=== PATIENT | female | born 2005 | race Hispanic/Latino ===

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

== ENCOUNTER 2025-01-25 14:46 | Emergency (ER) | payer MEDICAID, OTHER ==
[~2025-01-25] VITALS: Ht 157.5 cm; Wt 81.6 kg
[~2025-01-25 14:46] MED LIST: AMOX-426 PO
--- NOTE | 2025-01-25 15:55 | NUR ---
PT PLACED IN FAST TRACK
[2025-01-25 15:56] VITALS: BP 116/78; PULSE 100; RESP 16; TEMP 99; O2SAT 99
[2025-01-25 15:56] LABS: RAPID GROUP A STREP negative (NEGATIVE)
[2025-01-25 16:00] LABS: SARS-CoV-2, RNA, NAAT NEGATIVE SARS CoV-2 (NEGATIVE)
[2025-01-25 16:06] LABS: INFLUENZA TYPE A Negative For Type A (NEGATIVE); INFLUENZA TYPE B Negative For Type B (NEGATIVE)
[2025-01-25] MEDS ORDERED: AMOX1TAB16 PO (17:27)
--- NOTE | 2025-01-25 17:27 | ERN ---
General Chief Complaint: Sore Throat Stated Complaint: THROAT PAIN Time Seen by MD: 14:53 Time Seen by Midlevel: 14:53 Source: patient History of Present Illness Initial Comments 19-year-old female presenting to the ER for evaluation of a sore throat that has been ongoing for several days. Allergies: Coded Allergies: No Known Allergies (Unverified Allergy, Unknown, 01/26/24) Home Meds Active Scripts Amoxicillin/Potassium Clav (Augmentin 500-125 Tablet) 500 Mg-125 Mg Tablet, 1 TAB PO BID for 10 Days, #20 TAB 0 Refills Prov:ISA TILLMAN MD 01/26/24 Past Medical History Past Medical History: No Pertinent History Past Surgical History: Appendectomy Family History Family History: Negative Social History Social History: Negative Female( History) LMP: Jan 22, 2025 ROS Dictation CONSTITUTIONAL: Negative except for HPI HEAD/FACE: Negative except for HPI EENT: Negative except for HPI RESPIRATORY: Negative except for HPI GASTROINTESTINAL/ABDOMINAL: Negative except for HPI GENITOURINARY: Negative except for HPI MUSCULOSKELETAL: Negative except for HPI INTEGUMENTARY: Negative except for HPI NEUROLOGICAL/PSYCH: Negative except for HPI HEMATOLOGIC/LYMPHATIC: Negative except for HPI All Systems Negative, Except as noted above. 13 point review of systems assessed and all negative except for above. Physical Exam Physical Exam Dictation PHYSICAL EXAM: GENERAL: alert,, awake oriented x 3 HEENT: Erythema to the posterior oropharynx with bilateral tonsillar exudates NECK: Supple, no JVD, trachea midline LUNGS: Clear breath sounds bilaterally. No wheezes HEART: Regular rate and rhythm. Normal S1 and S2, without murmurs ABD: Abdomen soft, nontender. Bowel sounds present EXT: No clubbing or cyanosis, NEURO: Alert and oriented to person, follows commands Results Laboratory and Microbiology Lab and Micro Result Laboratory Tests Test 01/25/25 15:22 Influenza Type A Antigen Negative For Type A Influenza Type B Antigen Negative For Type B SARS-CoV-2, RNA, NAAT NEGATIVE SARS CoV-2 Group A Streptococcus Rapid negative (NEGATIVE) Labs Reviewed?: Yes MDM MDM: Differential diagnosis: Strep pharyngitis, upper respiratory infection, viral illness There are no social concerns with this patient. Prescription drug management Prescriptions will include: Augmentin Medical management and examination interpretation discussions were had by me with other qualified healthcare professionals as indicated for the patient's care. ED Course Orders Procedure Category Date Status Time Covid Rna Naat LAB 01/25/25 Complete 14:53 Influenza Type A & B, LAB 01/25/25 Complete Rapid 14:53 Rapid (Group A Strep) LAB 01/25/25 Complete 14:53 Vital Signs Date Time Temp Pulse Resp B/P (MAP) Pulse Ox O2 Delivery O2 Flow Rate FiO2 01/25/25 15:56 99.0 100 16 116/78 99 Room Air* 0 21 01/25/25 14:47 99.0 100 16 116/78 99 Room Air 0 DX & DISP Disposition: Discharge Departure Impression: Primary Impression: Streptococcal pharyngitis Condition: Stable Scripts Amoxicillin/Potassium Clav (Amox Tr-K Clv 875-125 mg Tab) 875 Mg-125 Mg Tablet 1 EACH PO BID for 5 Days, #10 TAB 0 Refills Prov: GEMA VALADEZ PAC 01/25/25 Referrals: SELF,REFERRAL (PCP) Time of Disposition: 17:26 I have reviewed the case, and I agree with, Diagnosis and Plan I performed the substantive portion of the visit. I have reviewed and ron last made and approve the management plan that is documented in the note by myself or the FLYNN. I acknowledge for responsibility for the patient's management plan. GEMA VALADEZ PAC Jan 25, 2025 17:27
== END 2025-01-25 18:16 | disposition home or self-care (01) ==
LOC: EDH 14:46
DX: J02.0 Streptococcal pharyngitis (principal); Z20.822 Contact with and (suspected) exposure to COVID-19; Z90.49 Acquired absence of other specified parts of digestive tract
CPT/HCPCS: 99284; 87635; 87880; 87804 ×2; 96372 ×2; J1100; J1885

== ENCOUNTER 2025-02-21 23:53 | Emergency (ER) | payer MEDICAID ==
[~2025-02-21] VITALS: Ht 157.5 cm; Wt 86.6 kg
[~2025-02-21 23:53] MED LIST changes: +AMOX1TAB16 PO
[2025-02-22] MEDS ORDERED: OFLO5DRO21 OTIC (00:07)
[2025-02-22] MEDS ORDERED: ACET-66 PO (00:07)
--- NOTE | 2025-02-22 00:08 | ERN ---
ED Note History of Present Illness Stated Complaint: C/O C/O PAIN TO EARS X 2 DAYS Chief Complaint: Earache Time Seen by MD: 23:55 Dictation: A 19-YEAR-OLD FEMALE COMING IN TODAY WITH COMPLAINTS OF BILATERAL EAR PAIN WORSE ON THE RIGHT, ONSET TWO DAYS PRIOR TO ARRIVAL. NO FEVER NO CHILLS NO NAUSEA VOMITING. THERE WAS NO HEARING LOSS. SHE STATES I RUPTURED MY RIGHT TYMPANIC MEMBRANE SEVERAL YEARS AGO. Allergies: Coded Allergies: No Known Allergies (Unverified Allergy, Unknown, 01/26/24) Home Meds Active Scripts Acetaminophen (Tylenol) 500 Mg Tab, 2 TAB PO Q6HPRN PRN for pain or fever, #60 TAB 0 Refills Prov:AGNES MEDRANO INGREDIENT SCALER 02/22/25 Ofloxacin (Ofloxacin) 0.3 % Drops, 5 DROP OTIC BID for 10, #5 ML 0 Refills 5 DROPS EACH EYE TWICE A DAY WITH COTTON FOR 10 DAYS. Prov:AGNES MEDRANO INGREDIENT SCALER 02/22/25 Amoxicillin/Potassium Clav (Amox Tr-K Clv 875-125 mg Tab) 875 Mg-125 Mg Tablet, 1 EACH PO BID for 5 Days, #10 TAB 0 Refills Prov:GEMA VALADEZ 01/25/25 Amoxicillin/Potassium Clav (Augmentin 500-125 Tablet) 500 Mg-125 Mg Tablet, 1 TAB PO BID for 10 Days, #20 TAB 0 Refills Prov:ISA TILLMAN MD 01/26/24 Past Medical History Past Medical History: No Pertinent History Surgical History: None Family History: Negative Social History: Negative History: Not Applicable LMP: Feb 21, 2025 RN Note Reviewed/Agreed w/PFSH: Yes Review of System Dictation CONSTITUTIONAL: NEGATIVE EXCEPT FOR HPI HEAD/FACE: NEGATIVE EXCEPT FOR HPI EENT: NEGATIVE EXCEPT FOR HPI BILATERAL EAR PAIN RESPIRATORY: NEGATIVE EXCEPT FOR HPI GASTROINTESTINAL/ABDOMINAL: NEGATIVE EXCEPT FOR HPI GENITOURINARY: NEGATIVE EXCEPT FOR HPI MUSCULOSKELETAL: NEGATIVE EXCEPT FOR HPI INTEGUMENTARY: NEGATIVE EXCEPT FOR HPI NEUROLOGICAL/PSYCH: NEGATIVE EXCEPT FOR HPI HEMATOLOGIC/LYMPHATIC: NEGATIVE EXCEPT FOR HPI ALL SYSTEMS NEGATIVE, EXCEPT NOTED ABOVE. 13 POINT REVIEW OF SYSTEMS ASSESSED AND ALL NEGATIVE EXCEPT FOR ABOVE. Initial Vital Sign VS Vital Signs Date Time Temp Pulse Resp B/P (MAP) Pulse Ox O2 Delivery O2 Flow Rate FiO2 02/21/25 23:55 98.8 97 20 116/73 100 Room Air Physical Exam Dictation VITAL SIGNS REVIEWED GENERAL APPEARANCE: ALERT, ORIENTED X 3, MILD ACUTE DISTRESS, WELL DEVELOPED, NOURISHED. MORBID OBESITY HEAD AND FACE: NON-TRAUMATIC. EYES: PERRL, PINK CONJUNCTIVAS, EYELID NO TRAUMA, ANTERIOR CHAMBER WITH ARCUS SENILIS. EARS: PINNAS INTACT AND NO SIGNS OF TRAUMA UNABLE TO VISUALIZE BILATERAL TYMPANIC MEMBRANES DUE TO CERUMEN. BILATERAL OTIC CANALS WITH A ERYTHEMA SWELLING TENDERNESS. DISCHARGED MASTOID PAIN BILATERALLY NOSE: NO DISCHARGE, NO BLEEDING. OROPHARYNX: MOUTH NORMAL, TONGUE PINK, PHARYNX CLEAR,NO ERYTHEMA, TONSILS NO EXUDATES, NO ABSCESSES NOTED, MUCOUS MEMBRANE MOIST NECK: SUPPLE, NON-TENDER, NO THYROMEGALY, NO MASSES, NO JVD, NO BRUITS BREAST:DEFERRED CHEST:NO TENDERNESS, NO CREPITUS, NO PARADOXICAL MOVEMENT, NO RETRACTIONS LUNGS:CLEAR, WELL-VENTILATED, SYMMETRIC, NO RALES, NO WHEEZING, NO RHONCHI, NO STRIDOR, GOOD BREATH SOUNDS BILATERALLY HEART: REGULAR RATE, REGULAR RHYTHM, NO MURMUR, NO GALLOPS VASCULAR: NO PERIPHERAL EDEMA, ABDOMEN: SOFT, POSITIVE BOWEL SOUNDS, NONDISTENDED, NO GUARDING, NONTENDER, NO REBOUND, NO MASSES NO HEPATOMEGALY, NO SPLENOMEGALY, NO KELLEY'S SIGN, NO HERNIAS. RECTAL: DEFERRED GENITAL: DEFERRED NEUROLOGICAL: NORMAL SPEECH, MOTOR FUNCTION INTACT, SENSORY FUNCTION INTACT MUSCULOSKELETAL: NECK NONTENDER, FULL RANGE OF MOTION, BACK NONTENDER, FULL RANGE OF MOTION, EXTREMITIES: NONTENDER, FULL RANGE OF MOTION SKIN: COLOR PINK, DRY, NO TURGOR, NO RASH, NO LACERATIONS, NO ABRASIONS, NO CONTUSIONS. LYMPHATIC: DEFERRED Results (Laboratory/Radiology) Labs Reviewed?: Yes ED Course ED Course Orders Procedure Category Date Status Time Acetaminophen 500mg PHA 02/22/25 In Process Tab (Tylenol 500mg T 00:30 Current Medications Medications (Trade) Dose Ordered Sig/Chuy Route PRN Reason Start Time Stop Time Status Last Admin Dose Admin Acetaminophen (TYLenol 500MG TAB) 1,000 mg ONCE ONCE PO 02/22/25 00:30 02/22/25 00:31 Vital Signs Date Time Temp Pulse Resp B/P (MAP) Pulse Ox O2 Delivery O2 Flow Rate FiO2 02/21/25 23:55 98.8 97 20 116/73 100 Room Air 0005/PATIENT WAS STRONGLY ADVISED TO NOT USE Q-TIPS OR FOREIGN BODIES IN EARS. SHE WILL BE PRESCRIBED OFLOXACIN OTIC DROPS WITHOUT BENEFIT OF LABS OR IMAGING GIVEN LIST OF LOCAL PRIMARY CARE DOCTORS Medical Decision Making MDM MEDICAL DECISION-MAKING BASED ON HPI AND PHYSICAL EXAM. NO LABS OR IMAGING INDICATED PATIENT WILL BE TREATED FOR ACUTE OTITIS EXTERNA BILATERAL PRESCRIBED OFLOXACIN OTIC DROPS TO BE APPLIED WITH COTTON GIVEN A LIST OF PRIMARY CARE DOCTORS FOLLOW UP IN THE NEXT 1-2 DAYS. DX & DISP Disposition: Discharge Departure Impression: Primary Impression: Bilateral otitis externa Condition: Stable Scripts Acetaminophen (Tylenol) 500 Mg Tab 2 TAB PO Q6HPRN PRN for pain or fever, #60 TAB 0 Refills Prov: AGNES MEDRANO 02/22/25 Ofloxacin (Ofloxacin) 0.3 % Drops 5 DROP OTIC BID for 10, #5 ML 0 Refills 5 DROPS EACH EYE TWICE A DAY WITH COTTON FOR 10 DAYS. Prov: AGNES MEDRANO 02/22/25 Additional Instructions: FOLLOW-UP WITH PRIMARY CARE PROVIDER IN 1 TO 2 DAYS. TAKE MEDICATIONS D IRECTED HERE IN THE EMERGENCY ROOM. OKAY TO CONTINUE HOME MEDICATIONS UNLESS OTHERWISE DISCUSSED DURING YOUR VISIT IN THE EMERGENCY ROOM TODAY. RETURN TO YOUR NEAREST EMERGENCY ROOM IF SYMPTOMS WORSEN OR IF THERE IS NO IMPROVEMENT. CALL 911 IF YOU NEED IMMEDIATE ASSISTANCE. TAKE TYLENOL OR MOTRIN [id number] NEEDED AND IF NO CONTRAINDICATIONS ARE PRESENT. INCREASE ORAL HYDRATION. A WOUND CULTURE OR URINE CULTURE WAS ORDERED HERE IN THE EMERGENCY ROOM DEPARTMENT PLEASE FOLLOW-UP WITH PRIMARY CARE PROVIDER AND ADVISE THEM TO GET REPEAT PORTS FROM OUR FACILITY. IF YOU HAD ANY ILDA WRAP/SPLINTS THAT WERE APPLIED HERE, PLEASE DO NOT REMOVE THEM UNTIL YOU SEE YOUR PRIMARY CARE OR SPECIALTY. USE OFLOXACIN DROPS IN YOUR EARS DIRECTED WITH COTTON FOR THE NEXT 10 DAYS. NO Q-TIPS OR ANY FOREIGN BODIES IN YOUR EAR. FOLLOW UP WITH ONE OF THE PRIMARY CARE DOCTORS ON THE LIST GIVEN YOU IN THE NEXT 1-2 DAYS IF CONDITION DOES NOT IMPROVE. Referrals: SELF,REFERRAL (PCP) Time of Disposition: 00:05 I have reviewed the case, and I agree with, Diagnosis and Plan AGNES MEDRANO Feb 22, 2025 00:08
[2025-02-22 00:35] VITALS: BP 114/74; PULSE 88; RESP 16; TEMP 98.2; O2SAT 100
== END 2025-02-22 00:35 | disposition home or self-care (01) ==
LOC: EDH 23:53
DX: H60.93 Unspecified otitis externa, bilateral (principal)
CPT/HCPCS: 99283